=== PATIENT | female | born 1990 | race Caucasian/White ===

== ENCOUNTER 2022-11-13 05:11 | Inpatient (IN) ==
--- NOTE | 2022-10-29 13:36 | History & Physical Report ---
Date of Service October 29, 2022 Assessment & Plan (1) Previous delivery affecting , antepartum: (2) with 39 completed weeks gestation: Plan Patient elects repeat c/s. If she labors prior, may consider a trial of labor. Risks of surgery discussed including anesthesia, bleeding, transfusion, infection and poor wound healing, injury to surrounding structures and need for further surgery, injury to baby, heart attack, blood clot, stroke and . Consent reviewed and signed. Questions answered. Surgery planned for 11/13/22. History of Present Illness Chief Complaint: repeat c/s Primary Care Provider: TATY Tavera Patient is a 32yowf who presents to labor and delivery for repeat c/s at 39 weeks. Her has been uncomplicated. Her first c/s was for breech and on pod 3 she had a fascial dehiscence and needed repair in the OR. All went well after. and Delivery Plans Previous Section Affecting complicated by fascial dehiscence on POD2 -2015 LTCS for breech, fascial dehiscence on POD2 -desires RCS and BTL C/S WITH TUBAL SCHEDULED FOR 11/13/[address] HAGER Rh neg -rhogam candidate Rhogam given 08/27/22- [place] New FOB OB Labs: Blood Type AB Negative 04/08/22 Antibody Screen NEGATIVE 08/27/22 Hemoglobin 10.6 g/dl (12.0-16.0) L 08/27/22 Hematocrit 30.8 % (34.1-44.9) L 08/27/22 Mean Corpuscular Volume 89.4 fL (80-100) 04/08/22 Platelet Count 340 K/uL (130-400) 04/08/22 Rubella IgG Antibody Immune (Immune) 04/08/22 Rapid Plasma Reagin Nonreactive (Nonreactive) 04/08/22 Hepatitis B Surface Antigen. NON-REACTIVE (NON-REACTIVE) 04/08/22 Hepatitis C Antibody (EIA) NON-REACTIVE (NON-REACTIVE) 04/08/22 HIV (1&2) Ag and Ab Confirmation NON-REACTIVE (NON-REACTIVE) 04/08/22 Glucose 1 Hour 50 gm Load 129 mg/dl (70-130) 08/27/22 OB Optional Labs: Chlamydia trachomatis RNA NOT DETECTED (NOT DETECTED) 04/08/22 Neisseria gonorrhoeae RNA NOT DETECTED (NOT DETECTED) 04/08/22 Labs Reviewed: cf/sma-negative--mln cfdna-low risk--mln gbs neg Allergies Allergy/AdvReac Type Severity Reaction Status Date / Time No Known Allergies Allergy Verified 10/29/22 09:29 Home Medications Medication Instructions Recorded Confirmed Type prenat.vits,nathalia,rbx-saqd-nnbyt PO 07/14/21 10/29/22 History ondansetron HCl 4 mg tablet 4 mg PO Q6H PRN nausea and 05/06/22 10/29/22 Rx vomiting #20 tabs Patient History Medical History Chlamydia S/P treatment Common migraine without aura Surgical History Delivery by section H/O colposcopy with cervical biopsy 2017 For ASC-H, no BARBARA seen S/P exploratory laparotomy repair of wound dehiscence POD2 from CS Family History Grandmother (Maternal) Breast cancer Grandfather (Maternal) Cancer Denies family history of Ovarian cancer Colorectal cancer Uterine cancer Social History Smoking Status: Former smoker marital status: marital status details: Noé (32) [phone] Current Living Situation: Spouse Current Living Situation Comment: lives with spouse, son, 1 dog. current occupational status: employed current occupation: direct support with Mental health OB History Past Pregnancies Del. Date GA wks Lbr Lgth wt Sex Type del Anes Place Del Prov ? Comment 05/20/15 39 8lb 6oz M Spinal Other [facility] No Breech MANAGER WOUND History noncontributory Physical Exam Constitutional: WD/WN, vitals as above Neck: trachea midline, no thyromegaly Respiratory: normal respiratory effort, lungs clear to auscultation Cardiovascular: RRR, no murmur, no edema Extremities: no calf tenderness and no edema Gastrointestinal (Abdomen): soft, nt, nd, gravid Psychiatric: A+Ox3, euthymic affect Coding Level of Care Code None Diagnoses Previous delivery affecting , antepartum O34.219 with 39 completed weeks gestation Z3A.39
--- NOTE | 2022-11-06 14:35 | Anesthesiology Consultation ---
Date of Service November 06, 2022 Assessment & Plan (1) Encounter for pre-operative examination: Chart Review Chart Review: charge entry clerk initiated -COVID screening: Per PAT nursing assessment on 11/06/22. No known COVID-19 po sitive contacts or current COVID-19 related symptoms. Travel screen negative. Patient is NOT vaccinated for Covid. At surgeon discretion if preop Covid testing being done. History Surgery Operation Date: 11/13/22 09:15 Proposed Procedures p Section (Delivery of Baby Through Abdominal Incision) - Michaelle Sherman MD, FACOG s with Bilateral Tubal Ligation - Michaelle Sherman MD, FACOG Height/Weight Height: 5 ft 2 in Weight: 83.461 kg Allergies Allergy/AdvReac Type Severity Reaction Status Date / Time No Known Allergies Allergy Verified 11/06/22 12:42 Medications Home Medications Medication Instructions Recorded Confirmed Last Taken ferrous sulfate 325 mg (65 mg 325 mg PO Q2D 11/06/22 11/06/22 Unknown iron) tablet vit no.133-ferrous 1 tab PO QAM 11/06/22 11/06/22 Unknown fumarate 28 mg-folic acid 800 mcg tablet () Past Medical History Medical History Anemia mild - on ferrous sulfate Chlamydia S/P treatment Common migraine without aura History of COVID-19 2019 - mild symptoms Nausea and vomiting after administration of anesthetic agent Past Family History Family History Grandmother (Maternal) Breast cancer Grandfather (Maternal) Cancer Other No family history of adverse response to anesthesia Denies family history of Ovarian cancer Colorectal cancer Uterine cancer Past Surgical History Surgical History H/O colposcopy with cervical biopsy 2017 For ASC-H, no BARBARA seen H/O wisdom tooth extraction History of esophagogastroduodenoscopy (EGD) S/P section S/P exploratory laparotomy repair of wound dehiscence POD2 from CS Social History Smoking Status: Former smoker tobacco type: cigarettes and e-cigarettes Do You Dip or Chew Tobacco: No Smoking End Date: 02/2022 Hx Alcohol Use: No Hx Substance Use: No substance use type: does not use
[2022-11-13] MEDS ORDERED: LACTATED RINGER'S 1,000 ML IV SCH ×3 (05:15→08:45)
[2022-11-13] MEDS ORDERED: CITRIC ACID/SODIUM CITRATE 15 ML UDC PO SCH (06:00)
[2022-11-13] MEDS ORDERED: ceFAZolin 2,000 MG in SYRINGE 0 ML IV SCH (06:00)
[2022-11-13 06:11] LABS: Basophils # (auto) 0.06 K/uL (0-0.2); Basophils % (auto) 0.5 %; Eosinophils # (auto) 0.39 K/uL (0-0.50); Eosinophils % (auto) 3.1 %; Hematocrit (blood only) 33.1 % (37.0-47.0); Hemoglobin 11.1 g/dl (12.0-16.0); Immature Granulocytes # (auto) 0.05 K/uL (0.01-0.20); Immature Granulocytes % (auto) 0.4 %; Lymphocytes # (auto) 2.29 K/uL (1.2-3.4); Lymphocytes % (auto) 18.1 %; Mean Corpuscular Hemoglobin 29.8 pg (25.0-34.0); Mean Corpuscular Hgb Conc 33.5 g/dL (32.0-36.0); Mean Platelet Volume 9.7 fL (9.4-12.4); Monocytes # (auto) 0.87 K/uL (0.11-0.59); Monocytes % (auto) 6.9 %; Neutrophils # (auto) 8.98 K/uL (1.40-6.50); Platelet Count 288 K/uL (130-400); RDW Coefficient of Variation 13.2 % (11.5-14.5); RDW Standard Deviation 41.9 fL (36.4-46.3); Red Blood Count 3.72 M/uL (4.20-5.40); White Blood Count 12.64 K/ul (4.8-10.8)
[2022-11-13] MEDS ORDERED: fentaNYL citrate 100 MCG/2 ML VIAL ONE (06:56)
[2022-11-13] MEDS ORDERED: ONDANSETRON INJ 2 MG/ML 2 ML VIAL ONE (06:56)
[2022-11-13] MEDS ORDERED: OXYTOCIN 10 UNITS/ML 10ML VIAL ONE (06:56)
[2022-11-13] MEDS ORDERED: MoRPHine SULFATE PF 1 MG/ML 10 ML AMP/VIAL ONE (06:56)
[2022-11-13] MEDS ORDERED: PHENYLEPHRINE HCL 10 MG/ML VIAL ONE (06:56)
[2022-11-13] MEDS ORDERED: KETOROLAC 30 MG/ML VIAL ONE (06:56)
--- NOTE | 2022-11-13 07:11 | History & Physical Bridge Note ---
Date of Service November 13, 2022 History & Physical Bridge Note I have examined the patient, reviewed the History & Physical and in the interval since the performance of the History & Physical I have noted the following changes of clinical significance: no changes noted
[2022-11-13] MEDS ORDERED: NALOXONE HCL 1 MG in SODIUM CHLORIDE 0.9% 1000ML 1,000 ML IV PRN (07:52)
[2022-11-13] MEDS ORDERED: KETOROLAC 30 MG/ML VIAL IV PRN (07:52)
[2022-11-13] MEDS ORDERED: diphenhydrAMINE 50 MG/ML VIAL IV PRN (07:52)
[2022-11-13] MEDS ORDERED: NALOXONE HCL 0.08 MG in SYRINGE 1.8 ML IV PRN (07:52)
[2022-11-13] MEDS ORDERED: NALBUPHINE HCL INJ 10 MG/ML AMP IV PRN (07:52)
[2022-11-13] MEDS ORDERED: ePHEDrine sulfate 50 MG/ML AMP IV PRN (07:52)
[2022-11-13] MEDS ORDERED: PROMETHAZINE HCL 12.5 MG in SODIUM CHLORIDE 0.9% 50 ML IV PRN (07:52)
[2022-11-13] MEDS ORDERED: NALOXONE HCL 0.4 MG/1 ML VIAL/CARP IV PRN (07:52)
[2022-11-13] MEDS ORDERED: ACETAMINOPHEN 1,000 MG/100 ML VIAL IV PRN (07:52)
[2022-11-13] MEDS ORDERED: ONDANSETRON INJ 2 MG/ML 2 ML VIAL IV PRN (07:52)
[2022-11-13] MEDS ORDERED: MoRPHine SULFATE PF 1 MG/ML 10 ML AMP/VIAL INT SPINAL ONE (07:52)
[2022-11-13] MEDS ORDERED: LACTATED RINGER'S 500 ML IV PRN (07:52)
[2022-11-13] MEDS ORDERED: DC INTRASPINAL MORPHINE SCH (08:00)
[2022-11-13] MEDS ORDERED: NO NARCOTICS OR SEDATIVES SCH (08:00)
[2022-11-13] MEDS ORDERED: SODIUM CHLORIDE 0.9% 1000ML 1,000 ML IV SCH (08:00)
[2022-11-13] MEDS ORDERED: CARBOPROST TROMETHAMINE 250 MCG/ML AMPUL ONE (08:17)
[2022-11-13] MEDS ORDERED: CARBOPROST TROMETHAMINE 250 MCG/ML AMPUL IM ONE (08:31)
[2022-11-13] MEDS ORDERED: DIPHTHERIA/TETANUS/PERTUSSIS 0.5mL SYR/VIAL (Age 7+yrs) IM ONE (08:42)
[2022-11-13] MEDS ORDERED: HYDROCORTISONE ACETATE 25 MG SUPP PR PRN (08:42)
[2022-11-13] MEDS ORDERED: SENNA 8.6 MG TAB PO PRN (08:42)
[2022-11-13] MEDS ORDERED: MAGNESIUM HYDROXIDE SUSP 30 ML UDC PO PRN (08:42)
[2022-11-13] MEDS ORDERED: BENZOCAINE 20% AER SPR 82.5 GM CAN EXT PRN (08:42)
--- NOTE | 2022-11-13 08:49 | Operative Report ---
PG Post Operative Report Pre & Post Diagnosis Operation Date: 11/13/22 07:30 Pre-Op Diagnosis: 1. at 39 weeks gestation 2. History of previous section 3. Desires permenant sterilization Post-Op Diagnosis: same I identified the patient and participated in the time-out.: Yes Procedure Operation Date: 11/13/22 07:30 Actual Procedures p repeat lower transverse Section in LD for live female infant at 0754 - Michaelle Sherman MD, FACOG bilateral salpingectomy Surgeon Michaelle Sherman MD, FACOG Balance Wheel Hand Filer Carmelina Levy MS2 Estimated Blood Loss 500 Findings Consistent with Post-Op Diagnosis viable female in cephalic presentation, apgars 8/9. nl utx/tubes/ovs bilaterally Fluids 750cc Specimens bilateral tubes Drains marinelli Anesthesia Type Spinal Disposition Accompanied Patient To Recovery: Yes Disposition: L&D Indications 32yowf with iup at 39 weeks with previous c/s for breech. Desires repeat and permanent sterilization Description of Procedure The patient was taken to the operating room where she was identified verbally and by bracelet. She was seated on the operating table where a spinal anesthetic was placed by anesthesia. She was then placed in the supine position with a leftward tilt. A Marinelli catheter was placed sterilely. the patient was prepped and draped in a normal standard fashion. the anesthetic was tested and found to be adequate. A time-out was held, identifying correct patient, procedure, positioning and preoperative antibiotics. There were no concerns. A Pfannenstiel skin incision was made with a knife and taken down to the underlying layer of fascia with the knife and Bovie electrocautery. Bleeding was attended to with the Bovie. The fascia was incised in the midline with the knife and taken out laterally with scissors. The superior edge of the fascial incision was grasped, elevated and the underlying layer of rectus muscle was taken off bluntly and with scissors. In a similar fashion, the inferior edge of the fascial incision was grasped, elevated and the underlying layer of rectus muscle was taken off bluntly and with scissors. The muscles were bluntly in the midline. The peritoneum was entered bluntly. The incision was then stretched. The bladder blade was placed. The vesicouterine peritoneum was identified, entered with scissors and taken out laterally with scissors. The bladder flap was created digitally A hysterotomy incision was scored with a knife and the incision was stretched superiorly and inferiorly with the seed yeast operator's fingers. The operators hand was placed into the incision and the head was delivered atraumatically. No nuchal cord. The nose and mouth were bulb suctioned. the rest of the infant was then delivered without difficulty. The nose and mouth were again bulb suctioned. There was a body cord. The cord was clamped and cut and the was then handed off to the awaiting director consumer affairs for drying and attention. Cord blood obtained. The placenta was Manually extracted. The uterus was exteriorized and cleared of all clot and debris with moistened laparotomy sponges. The hysterotomy incision was repaired in two layers, the first in a running locked layer, the second in an imbricating layer. Hemostasis was noted to be good. Attention was then turned to the tubes and using a Ligasure both tubes were excised. Posterior cul-de-sac was irrigated and cleared of all clot and debris. The hysterotomy incision was again inspected and found to be hemostatic. the uterus was reinteriorized. Hysterotomy incision was again inspected and found to be hemostatic. Rectus muscles were reapproximated with several interrupted stitches of 0 Vicryl. The fascia was then reapproximated with 1 PDS starting at the edges and meeting in the midline. The subcuticular tissues were copiously irrigated and bleeding was attended to with cautery. The skin was then closed with 4-0 Vicryl in a subcuticular fashion. I attest to the content of the Intraoperative Record and any orders documented therein. Any exceptions are noted below. OB Procedure Charges 15801 Add on Tubal for C/S
[2022-11-13] MEDS: OXYTOCIN 20 UNITS in LACTATED RINGER'S 1,000 ML IV SCH ×2 (10:30→19:57)
--- NOTE | 2022-11-13 10:42 | Anesthesiology Progress Note ---
Date of Service November 13, 2022 Anesthesia Post Procedure Vital Signs Vital Signs: Temp Pulse Resp BP Pulse Ox O2 Del Method 11/13/22 10:15 97.5 F L 16 98 Room Air 11/13/22 10:14 97.5 F L 16 100 Room Air 11/13/22 09:45 97.5 F L 16 100 11/13/22 09:35 16 94 Room Air 11/13/22 09:05 18 96 Room Air 11/13/22 08:45 97.7 F 16 94 Room Air 11/13/22 10:39 76 116/79 11/13/22 10:37 79 100 11/13/22 10:32 83 99 11/13/22 10:29 64 108/69 11/13/22 10:27 67 98 11/13/22 10:22 68 100 11/13/22 10:19 67 107/71 11/13/22 10:17 68 100 11/13/22 10:12 69 100 11/13/22 10:07 70 100 11/13/22 10:02 72 99 11/13/22 09:59 66 106/59 L 11/13/22 09:57 67 96 11/13/22 09:56 68 93 11/13/22 09:52 69 95 11/13/22 09:47 72 95 11/13/22 09:46 82 93 11/13/22 09:42 79 96 11/13/22 09:41 91 H 94 11/13/22 09:39 86 120/72 11/13/22 09:37 89 95 11/13/22 09:34 78 93 11/13/22 09:32 81 95 11/13/22 09:29 86 120/69 11/13/22 09:28 80 94 11/13/22 09:27 78 94 11/13/22 09:22 80 96 11/13/22 09:23 79 94 11/13/22 09:17 79 95 11/13/22 09:16 88 93 11/13/22 09:12 84 95 11/13/22 09:11 90 94 11/13/22 09:07 83 96 11/13/22 09:05 93 H 94 11/13/22 09:02 89 95 11/13/22 09:00 83 124/59 L 93 11/13/22 08:57 85 115/66 95 0203/23 08:55 88 94 11/13/22 08:52 96 H 92 11/13/22 08:49 83 92 11/13/22 08:47 84 92 11/13/22 08:43 83 94 11/13/22 08:42 96 H 94 11/13/22 08:38 93 11/13/22 08:38 92 H 11/13/22 08:37 103 H 95 11/13/22 08:38 96 H 124/62 11/13/22 07:30 84 100 11/13/22 07:25 86 100 11/13/22 07:20 81 100 11/13/22 07:15 97 H 100 11/13/22 07:08 84 100 11/13/22 07:04 82 139/81 11/13/22 05:22 98.1 F 110 H 18 124/79 11/13/22 05:22 98.1 F 18 Transfer of Care Handoff Completed per policy Notes Mental Status: alert / awake / arousable and participated in evaluation Patient Amnestic to Procedure: Yes Nausea / Vomiting: adequately controlled Pain: adequately controlled Airway Patency, RR, SpO2: stable & adequate BP & HR: stable & adequate Hydration State: stable & adequate Neuraxial Anesthesia: was administered and sensory block is resolving Anesthetic Complications: no major complications apparent and Pt Satisfied with anesthetic care
[2022-11-13] MEDS: SIMETHICONE 80 MG CHEW PO SCH ×3 (13:06→21:32)
[2022-11-13] MEDS: DOCUSATE SODIUM 100 MG CAP PO SCH (21:32)
[2022-11-14] MEDS ORDERED: KETOROLAC 30 MG/ML VIAL IV PRN (01:52)
[2022-11-14] MEDS ORDERED: diphenhydrAMINE Capsule 25 MG CAP PO PRN (01:52)
[2022-11-14] MEDS ORDERED: oxyCODONE/ACETAMINOPHEN 5mg/325mg TAB PO PRN (01:52)
[2022-11-14] MEDS ORDERED: PROMETHAZINE HCL 25 MG in SODIUM CHLORIDE 0.9% 50 ML IV PRN (01:52)
[2022-11-14] MEDS ORDERED: diphenhydrAMINE 50 MG/ML VIAL IV PRN (01:52)
[2022-11-14] MEDS ORDERED: MEPERIDINE HCL 50 MG/ML CARP IV PRN (01:52)
[2022-11-14] MEDS ORDERED: ONDANSETRON INJ 2 MG/ML 2 ML VIAL IV PRN (01:52)
[2022-11-14] MEDS: IBUPROFEN 600 MG TAB PO PRN ×4 (02:23→16:58)
--- NOTE | 2022-11-14 05:17 | Obstetrical Progress Note ---
Date of Service <Nicole Ramirez DO Mo - Last Filed: 11/14/22 06:23> November 14, 2022 Assessment & Plan <Nicole HassanDO - Last Filed: 11/14/22 06:23> (1) Status post section: plan for d/c Jacinto, do a trial of OOB and ambulation and then progress diet as tolerated (2) Rh negative status during : -rhogam candidate; Rhogam given 08/27/22 - Rhogam within 72 hours of pending babies blood type <Gisela Chavez MD - Last Filed: 11/14/22 07:50> (1) Status post section: (2) Rh negative status during : Subjective <Nicole HassanDO - Last Filed: 11/14/22 06:23> Edilia is a 32 y/o female who is POD #1 following delivery at 39 weeks. She reports feeling well overall this morning. Moderate abdominal cramping, pain well managed on analgesics. Jacinto is out, voiding. Some ambulation. Tolerating meals overnight. Is passing gas, no bowel movement. Has some persistent lochia with some improvement this morning. Currently breast feeding. Review of Systems Denies fever, chills, sweats Denies shortness of breath, difficulty breathing, chest pain, palpitations, chest pressure. Denies breast pain. Denies dysuria. Denies headache or changes in vision. Physical Exam <Nicole HassanDO - Last Filed: 11/14/22 06:23> General: Alert, oriented. No acute distress. Cardiac: Regular rate and rhythm, no murmurs/rubs/gallops. Respiratory: Clear to auscultation bilaterally a/p, no wheezes/rales/rhonchi. No increased work of breathing. Symmetrical chest rise. No respiratory distress. Abdomen: Soft, nontender, nondistended. Uterus: Uterine fundus firm, palpable 2 cm below umbilicus. Surgical dressing in place; clean and dry. Lower Extremities: No lower extremity edema or swelling. No deep calf pain. Krista's negative bilaterally. Results & Data ([facility]) <Nicole ScruggsLinda Hassan DO - Last Filed: 11/14/22 06:23> Vital Signs (Past 12 Hours) Vital Signs Temp Pulse Resp BP Pulse Ox 11/14/22 01:30 18 100 11/14/22 00:30 18 99 11/13/22 23:43 18 100 11/13/22 23:43 36.7 C 88 18 122/76 100 11/13/22 22:30 18 99 11/13/22 21:30 18 100 11/13/22 19:30 18 100 11/13/22 20:24 18 99 11/13/22 20:24 36.9 C 18 11/13/22 18:15 16 98 11/13/22 17:15 16 98 <Gisela Chavez MD - Last Filed: 11/14/22 07:50> Laboratory Results Laboratory Results - last 24 hr 11/14/22 11/14/22 05:47 05:47 WBC 10.68 RBC 3.00 L Hgb 9.2 L Hct 26.9 L MCV 89.7 MCH 30.7 MCHC 34.2 RDW Std Deviation 43.0 RDW Coeff of Grace 13.3 Plt Count 220 MPV 9.6 Immature Gran % (Auto) 0.4 Neut % (Auto) 75.6 Lymph % (Auto) 14.1 Cecil % (Auto) 6.6 Eos % (Auto) 3.0 Baso % (Auto) 0.3 Neut # (Auto) 8.08 H Lymph # (Auto) 1.51 Cecil # (Auto) 0.70 H Eos # (Auto) 0.32 Baso # (Auto) 0.03 Immature Gran # (Auto) 0.04 Blood Type Pending Screen Pending <Gisela Chavez MD - Last Filed: 11/14/22 07:50> Co-Signing Physician Notes Resident Physician Supervision Note: I interviewed and examined the patient. Discussed with Dr. Hassan and agree with findings and plan as documented in the note. Any exceptions or clarifications are listed here: [ ] Documented By: Gisela Chavez MD, FACOG Resident Activity Tracking <Nicole Hassan DO - Last Filed: 11/14/22 06:23> Resident Involvement: Resident Care Provided Care Provided: OB Delivery (post )
[2022-11-14 06:16] LABS: Basophils # (auto) 0.03 K/uL (0-0.2); Basophils % (auto) 0.3 %; Eosinophils # (auto) 0.32 K/uL (0-0.50); Hematocrit (blood only) 26.9 % (37.0-47.0); Hemoglobin 9.2 g/dl (12.0-16.0); Immature Granulocytes # (auto) 0.04 K/uL (0.01-0.20); Immature Granulocytes % (auto) 0.4 %; Lymphocytes # (auto) 1.51 K/uL (1.2-3.4); Lymphocytes % (auto) 14.1 %; Mean Corpuscular Hemoglobin 30.7 pg (25.0-34.0); Mean Corpuscular Hgb Conc 34.2 g/dL (32.0-36.0); Mean Corpuscular Volume 89.7 fL (80.0-100.0); Mean Platelet Volume 9.6 fL (9.4-12.4); Monocytes % (auto) 6.6 %; Neutrophils # (auto) 8.08 K/uL (1.40-6.50); Neutrophils % (auto) 75.6 %; Platelet Count 220 K/uL (130-400); RDW Coefficient of Variation 13.3 % (11.5-14.5); White Blood Count 10.68 K/ul (4.8-10.8)
[2022-11-14] MEDS: FERROUS SULFATE 325 MG TAB PO SCH (07:39)
[2022-11-14] MEDS: DOCUSATE SODIUM 100 MG CAP PO SCH ×2 (07:39→20:24)
[2022-11-14] MEDS: SIMETHICONE 80 MG CHEW PO SCH ×4 (07:39→20:25)
[2022-11-14] MEDS: PRENATAL VITAMIN 1 TAB PO SCH (07:39)
[2022-11-14] MEDS: ACETAMINOPHEN 325 MG TAB PO PRN ×2 (10:48→16:58)
[2022-11-14] MEDS ORDERED: bisacodyL 5 MG TABEC PO SCH (20:00)
[2022-11-15] MEDS: IBUPROFEN 600 MG TAB PO PRN ×2 (00:50→04:44)
[2022-11-15] MEDS: ACETAMINOPHEN 325 MG TAB PO PRN (00:51)
[2022-11-15 07:00] LABS: Hematocrit (blood only) 27.1 % (37.0-47.0); Hemoglobin 9.1 g/dl (12.0-16.0)
[2022-11-15] MEDS: PRENATAL VITAMIN 1 TAB PO SCH (07:24)
[2022-11-15] MEDS: FERROUS SULFATE 325 MG TAB PO SCH (07:24)
[2022-11-15] MEDS: SIMETHICONE 80 MG CHEW PO SCH (07:24)
[2022-11-15] MEDS: DOCUSATE SODIUM 100 MG CAP PO SCH (07:24)
[2022-11-15] MEDS ORDERED: bisacodyL 10 MG SUPP PR PRN (08:42)
--- NOTE | 2022-11-15 10:05 | Obstetrical Progress Note ---
Date of Service November 15, 2022 Assessment & Plan (1) Status post section: Plan Doing well. Desires d/c. Instructions reviewed. f/u 6 weeks. Day #:: 2 Subjective Ambulation: ambulating normally Voiding: no voiding problems Passing Gas:: Yes Diet Tolerance:: regular diet Lochia:: Small Feeding Type:: breast feeding pain controlled Physical Exam Constitutional WD/WN, vitals as above Cardiovascular Extremities: no calf tenderness and no edema Gastrointestinal (Abdomen) obese, soft, appropriately tender, ff at u incision c/d/i Results & Data ([facility]) Vital Signs (Past 12 Hours) Vital Signs Temp Pulse Resp BP Pulse Ox O2 Del Method 11/15/22 07:30 36.7 C 69 16 126/83 99 Room Air 11/15/22 00:09 36.7 C 81 18 114/16 L
--- NOTE | 2022-11-17 15:30 | Discharge Summary ---
Date of Service November 17, 2022 Admission HPI Per Admitting Provider Patient is a 32yowf who presents to labor and delivery for repeat c/s at 39 weeks. Her has been uncomplicated. Her first c/s was for breech and on pod 3 she had a fascial dehiscence and needed repair in the OR. All went well after. and Delivery Plans Previous Section Affecting complicated by fascial dehiscence on POD2 -2015 LTCS for breech, fascial dehiscence on POD2 -desires RCS and BTL C/S WITH TUBAL SCHEDULED FOR 11/13/[address] HAGER Rh neg -rhogam candidate Rhogam given 08/27/22- [place] New FOB OB Labs: Blood Type AB Negative 04/08/22 Antibody Screen NEGATIVE 08/27/22 Hemoglobin 10.6 g/dl (12.0-16.0) L 08/27/22 Hematocrit 30.8 % (34.1-44.9) L 08/27/22 Mean Corpuscular Volume 89.4 fL (80-100) 04/08/22 Platelet Count 340 K/uL (130-400) 04/08/22 Rubella IgG Antibody Immune (Immune) 04/08/22 Rapid Plasma Reagin Nonreactive (Nonreactive) 04/08/22 Hepatitis B Surface Antigen. NON-REACTIVE (NON-REACTIVE) 04/08/22 Hepatitis C Antibody (EIA) NON-REACTIVE (NON-REACTIVE) 04/08/22 HIV (1&2) Ag and Ab Confirmation NON-REACTIVE (NON-REACTIVE) 04/08/22 Glucose 1 Hour 50 gm Load 129 mg/dl (70-130) 08/27/22 OB Optional Labs: Chlamydia trachomatis RNA NOT DETECTED (NOT DETECTED) 04/08/22 Neisseria gonorrhoeae RNA NOT DETECTED (NOT DETECTED) 04/08/22 Labs Reviewed: cf/sma-negative--mln cfdna-low risk--mln gbs neg Discharge Data Consultations 11/13/22 05:12 Consult Anesthesiology Stat Procedures Performed Operation Date: 11/13/22 07:30 Actual Procedures p Section in LD for live female at 0754 - Michaelle Hager MD, FACOG s and bilateral tubal ligation - Michaelle Hager MD, FACOG Hospital Course (1) Status post section: Patient under went a repeat LTCS, ebl 500cc, viable female, apgars 8/9. Postop course uncomplicated--tolerated a regular diet, ambulated without difficulty, voided after the removal of the marinelli, had pain well controlled on oral pain meds. d/c h/h .11/06.1. Discharged home on ppd #2. Will f/u in the office in 6 weeks. Coding Level of Care Code None Diagnoses Status post section Z98.891
== END 2022-11-15 10:20 | disposition home or self-care (01) | DRG 785 ==
LOC: 4S1 05:11 → EDSTATUS 09:15 → 4E2 11:02
PROC: M.PPTLD (2022-11-13 07:30)